=== PATIENT | female | born 1955 | race American Indian/Alaskan Native ===

== ENCOUNTER 2019-02-14 09:54 | Outpatient (CLI) | payer MEDICARE ==
--- NOTE | 2019-02-14 16:06 | Magnetic Resonance Report ---
Bilateral breast MRI with and without contrast. History: New diagnosis right breast cancer Procedure: Coronal STIR, axial T1 and T2-weighted fat-sat images were obtained precontrast. 14 cc Pr oHance were injected intravenously and serial axial T1-weighted images with fat saturation were obtai chato postcontrast. 3-D MIP projections, Kinetic analysis and subtraction imaging was utilized to evalu ate. A dedicated breast coil was utilized for image acquisition. Comparison: Right breast ultrasound 02/04/2019, right breast ultrasound-guided biopsy images 02/04/2019, right diagnostic mammogram 02/04/2019, bilateral mammogram 11/04/2018 Findings: Background level of enhancement is minimal. No suspicious axillary or clavicular nodes are identified. No abnormal bone marrow signal is seen. No significant chest wall enhancement is noted. Left breast: No suspicious lesions are seen. Right breast: The known 2.2 cm mass in the posterior inner right breast is seen with biopsy clip note d centrally. This mass is approximately 10 cm from nipple, 2.9 cm from the chest wall, and 1.1 cm fro m the medial skin surface. No other suspicious lesions are seen. Impression: Known right breast cancer is noted with no other suspicious lesions seen BI-RADS 6, known malignancy Signer Name: Karthikeyan Fatima MD Signed: 02/14/2019 4:01 PM Workstation Name: [id number]
== END 2019-02-14 09:55 | disposition home or self-care (01) ==
LOC: SPVIMAG 09:54
PROVIDERS: ATTEND Surgery
DX: C50.211 Malignant neoplasm of upper-inner quadrant of right female breast (principal)
CPT/HCPCS: A9577; C8908; 77049

== ENCOUNTER 2020-05-09 08:37 | Day surgery (SDC) | payer MEDICARE ==
--- NOTE | 2020-05-07 10:27 | Anesthesia Consultation ---
Anesthesia Consult and Med Hx Date of service: 05/07/20 - Airway Anesthetic Teeth Evaluation: Good ROM Head & Neck: Adequate Mental/Hyoid Distance: Adequate Mallampati Class: Class I Intubation Access Assessment: Good - Pulmonary Exam CTA: Yes - Cardiac Exam Cardiac Exam: RRR - Pre-Operative Health Status ASA Pre-Surgery Classification: ASA3 Proposed Anesthetic Plan: General Nerve Block: TAP - Pulmonary Hx Smoking: Yes (former smoker quit 2003) Hx Respiratory Symptoms: No - Cardiovascular System Hx Hypertension: No Hx Heart Attack/AMI: No Hx Percutaneous Transluminal Coronary Angioplasty (PTCA): No Hx Cardia Arrhythmia: No - Central Nervous System CVA: No - Gastrointestinal Hx Gastroesophageal Reflux Disease: No - Endocrine Hx Renal Disease: No Hx Liver Disease: No Hx Insulin Dependent Diabetes: No Hx Non-Insulin Dependent Diabetes: No Hx Thyroid Disease: No - Other Systems Hx Cancer: Yes (hx breast ca s/p surgery. Last chemo 01/2020.) Hx Obesity: No - Additional Comments Anesthesia Medical History Comments: Remote hx DVT no longer on anticoagulation. No hx anesthetic complications. Requests infusaport be accessed if unable to start PIV.
[2020-05-07 10:38] LABS: Eosinophils # (Auto) 0.1 K/mm3 (0.0-0.4); Eosinophils % (Auto) 1.8 % (0.0-4.3); Hematocrit 35.2 % (30.3-42.9); Hemoglobin 12.3 gm/dl (10.1-14.3); Lymphocytes # (Auto) 0.5 K/mm3 (1.2-5.4); Lymphocytes % (Auto) 13.2 % (13.4-35.0); Mean Corpuscular HGB Conc 35 % (30-34); Mean Corpuscular Volume 92 fl (79-97); Monocytes # (Auto) 0.4 K/mm3 (0.0-0.8); Monocytes % (Auto) 11.8 % (0.0-7.3); Platelet Count 215 K/mm3 (140-440); Red Blood Count 3.84 M/mm3 (3.65-5.03)
[2020-05-07 10:41] LABS: Red Cell Distribution Width 20.2 % (13.2-15.2)
[2020-05-07 11:02] LABS: Alanine Aminotransferase 11 units/L (7-56); Blood Urea Nitrogen 6 mg/dL (7-17); Calcium 7.6 mg/dL (8.4-10.2); Hemolysis Index 1
[2020-05-07 11:04] LABS: BUN/Creatinine Ratio 12
--- NOTE | 2020-05-08 16:47 | History and Physical Report ---
History of Present Illness Date of examination: 05/08/20 Date of admission: 05/09/2020 Chief complaint: BRCA positive History of present illness: 64y/o presents with a history of Breast carcinoma and the patient is BRCA positive. The patient desires to decrease her ovarian cancer risk. She is aware of the risks of the surgery Past History Past Medical History: other (breast carcinoma; BRCA positive) Past Surgical History: other (bilateral mastectomy; knee surgery; back surgery; BTL) [employer] ENG[employer] History: fibroids Family/Genetic History: cancer Social history: - Obstetrical History : 5 Para: 5 Hx # Term Pregnancies: 5 Number of Pregnancies: 0 Spontaneous Abortions: 0 Induced : 0 Number of Living Children: 5 Medications and Allergies Allergies Allergy/AdvReac Type Severity Reaction Status Date / Time Pork/Porcine Containing Allergy Hives Verified 05/04/20 12:38 Products Home Medications Medication Instructions Recorded Confirmed Last Taken Type Anastrozole 1 tab PO DAILY 05/04/20 05/04/20 Unknown History Shon/D3/Mag11/Zinc/Department Chair/Jay Jay/Bor 1 each PO DAILY 05/04/20 05/04/20 Unknown History [Caltrate 600+D Plus Tablet] Cholecalciferol (Vitamin D3) 50,000 unit PO QWEEK 05/04/20 05/04/20 Unknown History [Vitamin D3 50,000UNIT CAP] Docusate Sodium [Stool Softener] 3 cap PO HS 05/04/20 05/04/20 Unknown History Active Meds: Active Medications Acetaminophen (Tylenol) 1,000 mg PO PREOP RIKY Stop: 05/09/20 23:00 Fentanyl (Sublimaze) 100 mcg IV ONCE PRN PRN Reason: sedation for nerve block Stop: 05/09/20 23:00 Gabapentin (Gabapentin) 300 mg PO PREOP NR Stop: 05/09/20 20:00 Lactated Ringer's (Lactated Ringers) 1,000 mls @ 100 mls/hr IV DIRECT RIKY Stop: 05/09/20 23:59 Midazolam HCl (Versed) 2 mg IV PREOP NR Stop: 05/09/20 20:00 Review of Systems All systems: negative - Vital Signs Vital signs: Vital Signs Temp Pulse Resp BP Pulse Ox 97.7 F 84 20 126/81 98 05/07/20 09:55 05/07/20 09:55 05/07/20 09:55 05/07/20 09:55 05/07/20 09:55 Temp Pulse Resp BP Pulse Ox 97.7 F 84 20 126/81 98 05/07/20 09:55 05/07/20 09:55 05/07/20 09:55 05/07/20 09:55 05/07/20 09:55 - Physical Exam Breasts: Positive: deferred Cardiovascular: Regular rate Lungs: Positive: Clear to auscultation Results Result Diagrams: 05/07/20 10:00 05/07/20 10:00 All other labs normal. Assessment and Plan - Patient Problems (1) BRCA positive Status: Acute Plan to address problem: will proceed with a robotic hysterectomy and BSO (2) Breast carcinoma Status: Acute
[~2020-05-09 08:37] MED LIST: ACETAMINOPHEN 500 MG TAB PO SCH; GABAPENTIN 300 MG CAP PO NR; LACTATED RINGERS 1,000 ML IV SCH; MIDAZOLAM 2 MG/2 ML INJ IV NR; ceFAZolin/Water 2 GM/20 ML 2 GM/20 ML SYRINGE IV NR
[2020-05-09] MEDS ORDERED: BUPIVACAINE/PF (0.25%) 2.5 MG/ML 30 ML VIAL INFILTRATI ONE (08:56)
[2020-05-09] MEDS ORDERED: dexAMETHasone 4 MG/ML VIAL ONE (08:57)
[2020-05-09] MEDS ORDERED: HYDROmorphone 1 MG/1 ML INJ IV PRN (09:03)
--- NOTE | 2020-05-09 09:03 | Anesthesia Day of Surgery ---
Anesthesia Day of Surgery - Day of Surgery Patient Examined: Yes Patient H&P Reviewed: Yes Patient is NPO: Yes
[2020-05-09] MEDS ORDERED: ROCURONIUM 50 MG/5 ML INJ IV ONE (09:32)
[2020-05-09] MEDS ORDERED: fentaNYL 100 MCG/2 ML INJ ONE (09:32)
[2020-05-09] MEDS ORDERED: propofoL 200 MG/20 ML VIAL IV ONE (09:32)
[2020-05-09] MEDS: fentaNYL 100 MCG/2 ML INJ IV PRN ×2 (09:35→09:38)
[2020-05-09] MEDS ORDERED: NEOMY 40 MG/POLYMYXIN B 200,000 UNITS/ML (GU) AMPULE IR ONE ×2 (09:36→11:01)
--- NOTE | 2020-05-09 09:45 | Progress Note ---
Regional Anesthesia Block - Regional Anesthesia Block Start Time: :34 Stop Time: :41 Performed By:: LATOSHA THOMAS Procedure: Bilateral Ultrasound Guided TAP Block Pt IDd, consent obtained, time out performed. Pt on monitor + O2 via NC, VS stable, sedation given per pre-op RN. Sterile prep. Landmarks identified with ultrasound. [1.5]cc skin wheel with 1% lidocaine. Needle advance in plane with ultrasound. [30]cc [0.25]% bupivacaine + [4]mg decadron + [100]mcg clonidine injected incrementally with negative aspiration. Procedure repeated on opposite side. Pt tolerated procedure well, no immediate complications noted
[2020-05-09] MEDS ORDERED: SODIUM CHLORIDE 0.9% IRR 1,500 ML BOTTLE IR ONE (11:01)
[2020-05-09] MEDS ORDERED: GLYCOPYRROLATE 0.4 MG/2 ML INJ ONE (11:06)
[2020-05-09] MEDS ORDERED: KETOROLAC 30 MG/1 ML INJ ONE (11:06)
[2020-05-09] MEDS ORDERED: NEOSTIGMINE 10MG/10 ML INJ MDV ONE (11:06)
[2020-05-09] MEDS ORDERED: dexAMETHasone 20 MG/5 ML VIAL ONE (11:06)
[2020-05-09] MEDS ORDERED: ONDANSETRON 4 MG/2 ML INJ ONE (11:06)
--- NOTE | 2020-05-09 11:15 | Operative Report ---
Operative Report Operative Report: Date of surgery: May 09, 2020 Preoperative diagnoses: BRCA positive; breast carcinoma survivor; leiomyoma Postoperative diagnoses: Same as above Procedure: Robotic hysterectomy and bilateral salpingo-oophorectomy Surgeon: Eda Marie M.D. Forestry Professor: Shelli Serrano Anesthesia: Gen. endotracheal anesthesia Estimated blood loss: Less than 50 mL Pathology: Uterus, cervix, bilateral tubes and ovaries Indication: 64-year-old -0-0-5 with a history of breast carcinoma and was found to be BRCA positive. Patient has elected to undergo robotic hysterectomy bilateral salpingo-oophorectomy to decrease her ovarian cancer risk. Procedure: The patient was taken to the operating room and given general endotracheal anesthesia without complication. She is prepped and draped in a normal sterile fashion. A bivalve speculum was placed in the patient's vagina and a single- tooth tenaculum placed on the anterior lip of the cervix. The uterus was sounded with the uterine sound. A [employer] uterine manipulator was placed in the bivalve speculum was then removed. Attention was then turned to the patient's abdomen where a 12 millimeter supra umbilical skin incision was then made. A Veress needle was placed and peritoneal entry was verified water-filled syringe. Insufflation of the peritoneal cavity was performed with CO2 gas. The 12 mm trocar was then placed under direct visualization. An additional 8 mm trocar was placed on the patient's left and right lateral side just opposite of the supraumbilical trocar. An additional 5 mm right lateral trocar was then placed as the accessory port. The Basilio Garland device was used to close the fascia of the 12 mm incision. The patient was then placed in steep Trendelenburg. The da Codi robot was then engaged. A fenestrated forcep was placed in arm 2 and a vessel sealer was placed in arm 1. General survey of the abdomen and pelvis revealed a small size uterus with small leiomyomas. The tubes and ovaries were normal in appearance. The surgeon then transferred to the surgical console. Peritoneal washings were performed. The infundibulopelvic ligament was then isolated on the right. The vessel sealer was used to coagulate the ligament which was then transected. The tube and ovary were transected from the supply. The round ligament was then coagulated and transected also. The vesicouterine peritoneum was then entered from the patient's right side and reflected off of the lower uterine segment. The uterine vessels were then coagulated with the vessel sealer. The vessels were then transected . Attention was then turned to the patient's left side where the infundibulopelvic ligament and mesosalpinx were again isolated coagulated and transected. The vesical peritoneum was then entered from the left and joined in the midline. Peritoneum was reflected off of the lower uterine segment. Uterine vessels were then coagulated and then transected. The blood supply to the uterus was adequately contained, a posterior colpotomy was made. The V care ring was visualized. Posterior colpotomy was created with the monopolar scissors. The incision was continued circumferentially until anterior colpotomy was made. The cervix and uterus were amputated from the vaginal cuff. The uterus was then removed along with the tubes and ovaries bilaterally through the vagina and a warm laparotomy sponge was placed and maintain the pneumoperitoneum. The vaginal cuff was then closed in a running fashion with V lock suture. Irrigation of the pelvis was performed. Hemoblast was applied to the incision. The skin was then reapproximated with 4-0 Monocryl. The tissue was sent to pathology which included the cervix, uterus, tubes and ovaries. The patient was then successfully extubated. She was then taken to the recovery room in stable condition. All sponge laps and needle counts were correct x2.
[2020-05-09 13:28] VITALS: BP 137/73
--- NOTE | 2020-05-09 15:22 | Post Anesthesia Evaluation ---
- Post Anesthesia Evaluation Patient Participated: Yes Airway Patent: Yes Stable Respiratory Function: Yes Nausea/Vomiting: No Temp > 96.8F: Yes Pain Manageable: Yes Adequeate Hydration: Yes Anesthesia Complications: No
== END 2020-05-09 08:38 | disposition home or self-care (01) ==
LOC: OR 08:37
PROVIDERS: ATTEND Obstetrics & Gynecology
DX: D25.0 Submucous leiomyoma of uterus (principal); Z15.01 Genetic susceptibility to malignant neoplasm of breast; C50.919 Malignant neoplasm of unspecified site of unspecified female breast; Z20.828 Contact with and (suspected) exposure to other viral communicable diseases; N85.8 Other specified noninflammatory disorders of uterus; D25.1 Intramural leiomyoma of uterus; D25.2 Subserosal leiomyoma of uterus; Z87.891 Personal history of nicotine dependence; Z98.49 Cataract extraction status, unspecified eye; Z86.718 Personal history of other venous thrombosis and embolism; Z90.13 Acquired absence of bilateral breasts and nipples; Z98.51 Tubal ligation status; Z96.652 Presence of left artificial knee joint; Z72.89 Other problems related to lifestyle; Z98.890 Other specified postprocedural states; Z79.899 Other long term (current) drug therapy; Z82.8 Family history of other disabilities and chronic diseases leading to disablement, not elsewhere classified
CPT/HCPCS: 36415; 58552; 80053; 85025; 86850; 86900; 86901; 88112; 88305; 88307; J0690; J1100; J1885; J2250; J2405; J2704; J2710; J3010; J7120; U0003; 88309